=== PATIENT | male | born 1980 | race Caucasian/White ===

== ENCOUNTER 2017-01-29 17:58 | Emergency (ER) | payer SELFPAY ==
[~2017-01-29] VITALS: Ht 170.2 cm; Wt 68.0 kg
[2017-01-29] MEDS ORDERED: LORazepam 2 MG/ML VIAL ONE (18:01)
[2017-01-29] MEDS ORDERED: HALOPERIDOL LACT 5 MG/ML VIAL. IVP ONE (18:15)
[2017-01-29] MEDS ORDERED: LORazepam 2 MG/ML VIAL IV ONE (18:15)
[2017-01-29] MEDS ORDERED: IV NORMAL SALINE 1,000ML 1,000 ML IV SCH (18:30)
[2017-01-29 18:37] LABS: BASO # 0.1 x10^3/uL (0.0-0.2); BASO % 1 % (0-3); EOS # 0.1 x10^3/uL (0.0-0.7); EOS % 2 % (0-3); HEMATOCRIT 42.2 % (39.0-53.0); HEMOGLOBIN 14.3 g/dL (13.0-17.5); LYMPH # 1.5 x10^3/uL (1.0-4.8); LYMPH % 20 % (24-48); MEAN CORPUSCULAR HEMOGLOBIN 31 pg (25-35); MEAN CORPUSCULAR HGB CONC 34 g/dL (31-37); MEAN CORPUSCULAR VOLUME 92 fL (79-100); MONO # 0.6 x10^3/uL (0.0-1.1); MONO % 9 % (0-9); NEUT % 69 % (31-73); PLATELET COUNT 363 x10^3/uL (140-400); RED BLOOD COUNT 4.59 x10^6/uL (4.30-5.70); RED CELL DISTRIBUTION WIDTH 13.3 % (11.5-14.5); WHITE BLOOD COUNT 7.3 x10^3/uL (4.0-11.0)
[2017-01-29 18:46] LABS: BARBITURATES NEG (NEG); BENZODIAZEPINES NEG (NEG); CANNABINOIDS NEG (NEG); COCAINE NEG (NEG); COLOR,URINE STRAW; METHADONE NEG (NEG); OPIATES NEG (NEG); PHENCYCLIDINE NEG (NEG)
[2017-01-29 18:47] LABS: AMORPHOUS SEDIMENT,UR PRESENT /HPF; BACTERIA,URINE FEW /HPF (0-FEW); BILIRUBIN,URINE NEG (NEG); CLARITY,URINE CLEAR; GLUCOSE,URINE 100 mg/dL (NEG); NITRITE,URINE NEG (NEG); SQUAMOUS EPITHELIAL CELL,UR OCC /LPF; UROBILINOGEN,URINE 0.2 mg/dL (0.2 mg/dL)
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
[2017-01-29 19:02] LABS: ALBUMIN 4.5 g/dL (3.4-5.0); ALBUMIN/GLOBULIN RATIO 1.3 (1.0-1.7); CALCIUM 9.1 mg/dL (8.5-10.1); CREATININE 1.7 mg/dL (0.7-1.3); GFR 45.3; MAGNESIUM 2.7 mg/dL (1.8-2.4); POTASSIUM 3.4 mmol/L (3.5-5.1); TOTAL BILIRUBIN 1.1 mg/dL (0.2-1.0); TOTAL PROTEIN 7.9 g/dL (6.4-8.2)
[2017-01-29 19:05] LABS: AMPHETAMINE/METHAMPHETAMINE POS (NEG)
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
[2017-01-29 19:40] LABS: ACETAMIN < 10 mcg/mL (10-30); SALIC 2.5 mg/dL (2.8-20.0)
[2017-01-29 19:41] LABS: BGAS PH 7.38 (7.35-7.46)
--- NOTE | 2017-01-29 19:44 | EKG ---
[address] [address] Test Date: 2017-01-29 Test Time: 19:18:24 Pat Name: KYA SYKES Department: Room: Gender: M Miner Helper: LEONIE : 1979-08-22 Requested By: JOSSE GOMEZ Order Number: [id number] Reading MD: Charlie Cabrera Measurements Intervals [place] Rate: 102 P: 0 AR: 126 QRS: 61 QRSD: 102 T: -3 QT: 320 QTc: 421 Interpretive Statements SINUS TACHYCARDIA MODERATE AMPLITUDE CRITERIA FOR LVH Electronically Signed On 02-01-2017 8:42:22 CDT by hCarlie Cabrera
[2017-01-29 22:00] VITALS: BP 136/62
--- NOTE | 2017-01-30 08:15 | RAD ---
Indication change in mental status. Suspect CVA. Protocol exam. A single view of the chest was obtained. No prior imaging is available. The heart and pulmonary vessels appear normal. There is no focal infiltrate. There is no significant pleural fluid or pneumothorax. Visualized bony structures appear grossly intact. The stomach is distended with air. IMPRESSION: No acute or focal process seen in the chest
== END 2017-01-29 22:00 | disposition short-term general hospital (02) ==
LOC: EDBD 17:58 → ER 17:58
DX: R41.82 Altered mental status, unspecified (principal); F15.10 Other stimulant abuse, uncomplicated; E87.6 Hypokalemia; N28.9 Disorder of kidney and ureter, unspecified; R79.1 Abnormal coagulation profile; R74.8 Abnormal levels of other serum enzymes; F20.9 Schizophrenia, unspecified; F17.200 Nicotine dependence, unspecified, uncomplicated
CPT/HCPCS: 36415; 36600; 51702; 70450; 71010; 72125; 80053; 80305; 81001; 82550; 82803; 83605; 83690; 83735; 83880; 84484; 85027; 85379; 85610; 85730; 87040; 93005; 96361; 96374; 99285; G0480; J2060; G0481; J7030